=== PATIENT | male | born 1975 | race African-American/Black ===

== ENCOUNTER 2018-11-06 21:09 | Emergency (ER) | payer MEDICAID ==
[~2018-11-06] VITALS: Ht 165.1 cm; Wt 74.8 kg
[2018-11-07] MEDS ORDERED: LIDOCAINE W/ EPINEPHRINE 2% INJ 20ML VIAL ONE (01:08)
[2018-11-07] MEDS ORDERED: LIDOCAINE 1% HCL (LOCAL ANESTH.) INJ 20ML MDV ONE (01:08)
[2018-11-07 01:13] VITALS: BP 160/100
[2018-11-07] MEDS ORDERED: cefTRIAXone SOD 1,000 MG VL IM ONE (01:30)
[2018-11-07] MEDS ORDERED: LIDOCAINE W/ EPINEPHRINE 2% INJ 20ML VIAL IJ ONE (02:30)
== END 2018-11-07 02:21 | disposition home or self-care (01) ==
LOC: ER 21:13
DX: S01.81XA Laceration without foreign body of other part of head, initial encounter (principal); M62.838 Other muscle spasm; M54.2 Cervicalgia; W22.8XXA Striking against or struck by other objects, initial encounter; Y93.89 Activity, other specified; Y99.8 Other external cause status; Y92.89 Other specified places as the place of occurrence of the external cause
CPT/HCPCS: 12013; 70450; 96372; 99284; J0696; J2001

== ENCOUNTER 2018-11-15 13:31 | Emergency (ER) | payer MEDICAID ==
[~2018-11-15] VITALS: Ht 165.1 cm; Wt 74.8 kg
[2018-11-15 13:51] VITALS: BP 133/91
== END 2018-11-15 14:12 | disposition home or self-care (01) ==
LOC: ER 13:37
DX: S01.01XD Laceration without foreign body of scalp, subsequent encounter (principal); S01.81XD Laceration without foreign body of other part of head, subsequent encounter; I10 Essential (primary) hypertension; W22.01XD Walked into wall, subsequent encounter